=== PATIENT | female | born 1995 | race Caucasian/White ===

== ENCOUNTER 2018-04-13 16:00 | Emergency (ER) | payer MEDICAID ==
[2018-04-13 16:03] VITALS: BP 119/62
--- NOTE | 2018-04-14 01:33 | ED ---
Hiren Trujillo Rebecca, scribed for Nano Lua MD on 04/13/18 at 1859 . Substance Abuse/Use - HPI Summary HPI Summary: Pt is a 23 y/o F BIBA who presents to ED after being sent by [facility]. Pt reports that earlier today she had consumed EtOH and went to [facility] to get rehab. While there, she had been getting asked questions and was honest about her alcohol consumption. [facility] took her alcohol level and sent her to the ED for EtOH metabolism, as she must be sober for admission. Per nurse, [facility] only requested a serum alcohol and no other toxicology. PMHx hepatitis C (resolved spontaneously). SHx alcohol and drug abuse (uses benzodiazepines and former IVDA ). PSHx open heart surgery at 2 months old. Pt states she is not suicidal or homicidal. Has suboxone prescribed and trazodone prescribed, has not been taking them as directed. - History Of Current Complaint Chief Complaint: EDSubstanceAbuse Stated Complaint: ETOH Time Seen by Provider: 04/13/18 16:02 Hx Obtained From: Patient, Other: - Nurse, Alma Wells, who obtained hx from [facility] ?: No Onset/Duration of Drug/ETOH Abuse: Hours - today Ingestion History: Type/Name Of Drug - EtOH Overdose Characteristics: Oral Timing Of Abuse: Daily Severity Initially: Moderate Severity Currently: None Character: Anxious, Angry, Frustrated Aggravating Factor(s): Nothing Alleviating Factor(s): Nothing Associated Signs And Symptoms: Negative Related Hx: Drug/Alcohol Last Used @ - today, ETOH - Allergies/Home Medications Allergies/Adverse Reactions: Allergies Allergy/AdvReac Type Severity Reaction Status Date / Time morphine Allergy Unknown Verified 04/13/18 19:16 Reaction Details Sulfa (Sulfonamide Allergy Unknown Verified 04/13/18 19:16 Antibiotics) Reaction Details Home Medications: Home Medications Buprenorphine/Naloxone SL TAB* [Suboxone 8-2 mg SL TAB*] 1.5 tab.sl SL BID 04/13 [History Confirmed 04/13/18] PMH/Surg Hx/FS Hx/Imm Hx Previously Healthy: No Endocrine/Hematology History: Denies: Hx Diabetes Cardiovascular History: Reports: Other Cardiovascular Problems/Disorders - open heart surgery at 2 months of age Denies: Hx Coronary Artery Disease Psychiatric History: Reports: Hx Substance Abuse - alcohol, former IVDU, benzodiazepines - Surgical History Surgery Procedure, Year, and Place: open heart surgery at 2 months old Infectious Disease History: Yes Infectious Disease History: Reports: Hx Hepatitis - Hep C, Resolved spontaneously Denies: Traveled Outside the [place] in Last 30 Days - Family History Known Family History: Positive: Cardiac Disease - Social History Alcohol Use: Daily Substance Use Type: Reports: None Smoking Status (MU): Heavy Every Day Tobacco Smoker Review of Systems Negative: Fever Cardiovascular: Negative Respiratory: Negative Gastrointestinal: Negative Skin: Negative Neurological: Negative Positive: Other - EtOH intoxication, resolved in ED, calm cooperative All Other Systems Reviewed And Are Negative: Yes Physical Exam - Summary Physical Exam Summary: Appearance: Well-appearing, no pain distress, well-nourished, well-healed scar on the left lateral chest, calm, cooperative, no signs of alcohol withdrawal, not hypertensive or tachycardic or febrile . Skin: Warm, color reflects adequate perfusion, dry, scar left chest as above Head: Normal Head/Face inspection, atraumatic Eyes: Conjunctiva clear, pupils 3mm, reactive. PERRL, EOMI, no nystagmus ENT: Normal inspection Neck: Supple, no nodes, no JVD. Respiratory: Lungs clear, Normal breath sounds, no respiratory distress Cardio: RRR, No murmur, pulses normal, brisk capillary refill Abdomen: Soft, nontender Bowel sounds: present Musculoskeletal: Strength Intact/ROM intact. No calf tenderness. No edema. Psychological: Normal Neuro: Alert, muscle tone normal, no focal deficit, no tremors, speech clear, coherent, gait steady and normal GCS=15 Triage Information Reviewed: Yes Vital Signs On Initial Exam: Initial Vitals Temp Pulse Resp BP Pulse Ox 98.6 F 89 16 119/62 99 04/13/18 16:01 04/13/18 16:01 04/13/18 16:01 04/13/18 16:01 04/13/18 16:01 Vital Signs Reviewed: Yes Diagnostics - Vital Signs Vital Signs Temp Pulse Resp BP Pulse Ox 04/13/18 16:01 98.6 F 89 16 119/62 99 - Laboratory Lab Results: Lab Results 04/13/18 Range/Units 16:22 Serum Alcohol < 10 (<10) mg/dL Lab Statement: Any lab studies that have been ordered have been reviewed, and results considered in the medical decision making process. Course/Dx - Course Assessment/Plan: Pt is a 23 y/o F who presented to ED after being referred by [facility] for EtOH metabolism prior to admission for rehab. Pt had presented to [facility] voluntarily requesting alcohol rehab. Serum alcohol level of 0 in the ED. Pt denies SI/HI. Does not need mental health evaluation. Prior to initial eval by myself, pt's aunt and uncle are present and agree to take her home for the night and bring her back to [facility] in the morning for rehab. Pt will be D/C to home with Dx of alcohol abuse. Allergies noted and pt medications reviewed this visit. - Diagnoses Differential Diagnosis/HQI/PQRI: Positive: Acute Psychosis, Alcohol Withdrawal, Drug Abuse, Other - alcoholism Provider Diagnoses: Alcohol abuse Discharge - Sign-Out/Discharge Documenting (check all that apply): Discharge/Admit/Transfer - Discharge - Discharge Plan Condition: Stable Disposition: HOME Patient Education Materials: Abuse of Alcohol (ED) Referrals: care, connections [Other] (Call this number to get established with a primary care provide ) [facility] - Residential Facility [Outside] - 1 Day (go to [facility] in the am. ) Additional Instructions: Your alcohol level was not measurable at the time it was drawn in the ER. Go to [facility] in the am. Return to the ER if you have new or worsening symptoms. - Billing Disposition and Condition Condition: STABLE Disposition: HOME The documentation as recorded by the Hiren carmen Rebecca accurately reflects the service I personally performed and the decisions made by me, Nano Lua MD.
== END 2018-04-13 20:07 | disposition home or self-care (01) ==
LOC: ED 16:00
DX: F10.10 Alcohol abuse, uncomplicated (principal); F17.200 Nicotine dependence, unspecified, uncomplicated; Z88.2 Allergy status to sulfonamides
CPT/HCPCS: 36415; 80320; 99282; G0480